=== PATIENT | female | born 1955 | race Caucasian/White ===

== ENCOUNTER → 2017-04-27 | Outpatient (CLI) | payer MEDICARE, BC ==
--- NOTE | ~2017-04-27 | MY29 ---
[facility] A Service [facility] RADIOLOGY TEXT RESULTS PATIENT: MARVIN BELLA LOCATION: [facility] : 51 UNIT #: [id number] AGE: [address]: Shaquille Crowell MD SEX: F ORDER DR: [id number] [facility] [address] [place], [place] [address] [id number] O MR#: [id number] Acc #: [id number] NAME: MARVIN BELLA : 1955 SEX: F STUDY DATE/TIME: 04/27/2017 14:29 UNIT: [facility] ROOM: STUDY DESCRIPTION: MY CLIFF SCREENING W/ CAD BILAT Attending Physician: Shaquille Crowell M.D. Referring Physician: Shaquille Crowell M.D. Ordering Physician: Shaquille Crowell M.D. Primary Care Physician: Shaquille Crowell M.D. MEDICAL IMAGING REPORT This report is preliminary unless electronic signature is present EXAM Digital screening mammogram 04/27/2017, [facility] HISTORY 62-year-old woman no risk elevation. Prior breast reduction surgery. Annual screen. COMPARISON Mammograms date to 05/15/2006 with most recent screening comparison 04/26/2015 FINDINGS Digital imaging of each breast was completed utilizing a two-view examination of each breast in craniocaudal and mediolateral-oblique projections. Review and interpretation of digital mammograms include a second review in conjunction with FDA-approved CAD device. There is a normal parenchymal presentation bilaterally consistent with the patient's age. There are no breast masses imaged and no parenchymal asymmetry is visualized. There are no suspicious microcalcifications and I see no focal architectural disturbance. IMPRESSION Negative screening digital mammogram. One-year followup recommended. Patients over the age of 40 are entered into a reminder system with target due date for the next mammogram. A result letter will also be sent to the patient. BIRADS: 1 Negative ADDENDUM [facility] A Service [facility] RADIOLOGY TEXT RESULTS PATIENT: MARVIN BELLA LOCATION: [facility] : 51 UNIT #: [id number] AGE: [address]: Shaquille Crowell MD SEX: F ORDER DR: Breast parenchyma is fatty replaced Dictated by... John Burton M.D. THIS IS AN ELECTRONICALLY VERIFIED REPORT John Burton M.D. at 04/28/2017 8:06 AM YASIR/harry TD: 04/27/2017 17:28 JOB #: [id number] MEDICAL IMAGING REPORT Page 1 of 1 COPY
== END | disposition home or self-care (01) ==
LOC: CWCC 14:18
DX: Z12.31 Encounter for screening mammogram for malignant neoplasm of breast (principal); R92.8 Other abnormal and inconclusive findings on diagnostic imaging of breast
CPT/HCPCS: G0202